=== PATIENT | female | born 1985 | race Caucasian/White ===

== ENCOUNTER 2017-09-05 07:26 | Emergency (ER) | payer OTHER ==
[2017-09-05] MEDS ORDERED: PANTOPRAZOLE 40 MG INJ ONE (08:04)
[2017-09-05] MEDS ORDERED: PROMETHAZINE 25 MG/ML VIAL ONE (08:04)
[2017-09-05] MEDS ORDERED: NA CHLORIDE 0.9% 500 ML ONE (08:04)
[2017-09-05] MEDS ORDERED: NA CHLORIDE 0.9% 1,000 ML ONE (08:04)
[2017-09-05 08:21] LABS: Absolute Lymphocytes (CBC) 2.4 K/uL (0.7-4.9); Absolute Monocytes 0.4 K/uL (0.1-1.3); Absolute Neutrophil 4.3 K/uL (1.8-8.0); Basophils % 0.6 % (0-1.3); Eosinophils % 2.8 % (0-4.4); Hematocrit 42.2 % (36.0-45.0); Lymphocytes % 33.1 % (15.3-44.8); MCH 30.2 pg (27.0-35.0); MCV 90.6 fL (80-100); MPV 8.4 fL (7.6-11.3); Monocytes % 4.7 % (3.3-12.3); RBC Red Blood Cell Count 4.65 M/uL (3.86-4.86)
[2017-09-05 08:26] LABS: Protime INR 0.99
[2017-09-05 08:34] LABS: Bicarbonate 27 mEq/L (21-31); Glucose Level 109 mg/dL (65-120); Lipase 38 U/L (22-51); Potassium 3.6 mEq/L (3.6-5.0); Sodium Level 140 mEq/L (135-145)
[2017-09-05 08:40] LABS: ALT/SGPT 25 IU/L (10-60); AST/SGOT 21 IU/L (10-42); Alkaline Phosphatase 103 IU/L (42-121); Amylase Level 74 U/L (28-100); BUN Blood Urea Nitrogen 8 mg/dL (6-20); Bilirubin Direct 0.1 mg/dL (0-0.2); Bilirubin Total 0.4 mg/dL (0.3-1.2); Magnesium 2.1 mg/dL (1.8-2.5)
[2017-09-05] MEDS ORDERED: LIDOCAINE VISCOUS 2% SOLN 15 ML UDC ONE (09:37)
[2017-09-05] MEDS ORDERED: MAGNE/ALUM HYDROXD 30 ML UCUP ONE (09:37)
[2017-09-05] MEDS ORDERED: HALOPERIDOL LACT 5 MG/ML INJ ONE (09:46)
[2017-09-05] MEDS ORDERED: MORPHINE 4 MG/ML SYR ONE (09:51)
[2017-09-05 09:58] LABS: Urine Bacteria <20 /HPF (<20); Urine Culture Reflex Order NOT NEEDED; Urine RBC NONE SEEN /HPF (NONE SEEN)
[2017-09-05 09:58] LABS: Urine Blood NEGATIVE (NEG); Urine Glucose NEGATIVE (NEG); Urine Protein NEGATIVE (NEG); Urine Specific Gravity 1.015 (1.005-1.030)
--- NOTE | 2017-09-05 10:26 | RAD REPORT ---
EXAM DESCRIPTION: CT - Abdomen Pelvis W Contrast - 09/05/2017 10:04 am CLINICAL HISTORY: Abdominal pain/left upper quadrant pain with vomiting COMPARISON: none. TECHNIQUE: Computed axial tomography of the abdomen pelvis was obtained. 100 cc Isovue-300 was admin istered intravenously. Oral contrast was not requested which limits evaluation of bowel. All CT scans are performed using dose optimization technique as appropriate and may include automated exposure control or mA/KV adjustment according to patient size. FINDINGS: The liver, spleen, pancreas, adrenal and kidneys appear unremarkable. There is no evidence of diverticulitis. The appendix is normal. 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 Fluid is present within nondilated small bowel The gallbladder has been removed. A small umbilical hernia is present. IMPRESSION: Fluid within nondilated small bowel may indicate an enteritis
--- NOTE | 2017-09-05 10:46 | RAD REPORT ---
EXAM DESCRIPTION: RAD - Chest Single View - 09/05/2017 8:55 am CLINICAL HISTORY: Chest pain. COMPARISON: None. FINDINGS: Portable technique limits examination quality. The lungs are grossly clear. The heart is normal in size. No displaced fractures. IMPRESSION: No acute intrathoracic process suspected.
--- NOTE | 2017-09-05 11:08 | EDPHYS ---
Physician Documentation [facility] Name: Kim Willson Age: 32 yrs Sex: Female : 1985 Arrival Date: 09/05/2017 Time: 07:30 Bed Treatment Private MD: None, None ED Physician Mc Cope HPI: 09/05 07:45 This 32 yrs old Female presents to ER via Ambulatory with complaints of cp Abdominal Pain, Nausea/Vomiting. 07:45 The patient presents with abdominal pain in the upper abdomen, nausea and vomiting. cp 07:45 Onset: The symptoms/episode began/occurred 2-3 days ago. cp 07:45 The symptoms do not radiate. Associated signs and symptoms: Pertinent positives: cp constipation, vomiting blood, Pertinent negatives: diarrhea, fever. Patient reports she ran out of Dexilent and Phenergan medications. 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 - Social history:: Smoking status: Patient/guardian denies using tobacco. - Ebola Screening: : No symptoms or risks identified at this time. ROS: 07:50 Constitutional: Negative for body aches, chills, fever, poor PO intake. cp 07:50 Eyes: Negative for injury, pain, redness, and discharge. cp 07:50 ENT: Negative for drainage from ear(s), ear pain, sore throat, difficulty swallowing, difficulty handling secretions. 07:50 Neck: Negative for pain with movement, pain at rest, stiffness. 07:50 Cardiovascular: Negative for chest pain, edema, palpitations. 07:50 Respiratory: Negative for cough, shortness of breath, wheezing. 07:50 Abdomen/GI: Positive for abdominal pain, nausea, vomiting, constipation, hematemesis, of the upper abdomen, Negative for diarrhea, dysphagia, black/tarry stool, rectal bleeding. 07:50 Back: Negative for pain at rest, pain with movement, radiated pain. 07:50 : Negative for urinary symptoms. 07:50 Skin: Negative for cellulitis, rash. 07:50 Neuro: Negative for altered mental status, dizziness, headache, syncope, near syncope, weakness. 07:50 All other systems are negative. Exam: 07:58 Constitutional: The patient appears in no acute distress, alert, awake, cp non-diaphoretic, non-toxic, well developed, well nourished, uncomfortable. 07:58 Head/Face: Normocephalic, atraumatic. cp 07:58 Eyes: Periorbital structures: appear normal, Pupils: equal, round, and reactive to light and accomodation, Extraocular movements: intact throughout, Conjunctiva: normal, no exudate, no injection, Sclera: no appreciated abnormality, Lids and lashes: appear normal, bilaterally. 07:58 ENT: External ear(s): are unremarkable, Nose: is normal, Mouth: Lips: moist, Oral mucosa: pink and intact, moist, Posterior pharynx: is normal, airway is patent, no erythema, no exudate, Voice: is normal. 07:58 Neck: ROM/movement: is normal, is supple, without pain, no range of motions limitations, no nuchal rigidity. 07:58 Chest/axilla: Inspection: normal, Palpation: is normal, no crepitus, no tenderness. 07:58 Cardiovascular: Rate: normal, Rhythm: regular, Heart sounds: murmur, not appreciated, rub, not appreciated, gallop, not appreciated, JVD: is not appreciated. 07:58 Respiratory: the patient does not display signs of respiratory distress, Respirations: normal, no use of accessory muscles, no retractions, no splinting, no tachypnea, labored breathing, is not present, Breath sounds: are clear throughout, no decreased breath sounds, no stridor, no wheezing. 07:58 Abdomen/GI: Inspection: abdomen appears normal, Bowel sounds: active, all quadrants, Palpation: soft, in all quadrants, moderate abdominal tenderness, in the epigastric area and left upper quadrant, rebound tenderness, is not appreciated, involuntary guarding, is not appreciated. 07:58 Back: CVA tenderness, is absent. 07:58 Skin: cellulitis, is not appreciated, no rash present. Vital Signs: 07:37 BP 147 / 100; Pulse 78; Resp 16 S; Temp 98.0(O); Pulse Ox 97% on R/A; Weight 104.33 kg aa5 (R); Height 5 ft. 6 in. (167.64 cm) (R); Pain 8/10; 08:17 BP 137 / 98; Pulse 56; Resp 16; Pulse Ox 97% ; jl7 09:40 BP 152 / 116; Pulse 75; Resp 16; Pulse Ox 100% ; Pain 8/10; jl7 12:00 BP 157 / 113; Pulse 75; Resp 16; Pulse Ox 100% ; jl7 13:14 BP 155 / 103; Pulse 65; Resp 16; Pulse Ox 100% ; jl7 07:37 Body Mass Index 37.12 (104.33 kg, 167.64 cm) aa5 MDM: 07:35 Patient medically screened. cp 08:00 Differential diagnosis: gastritis, gastroesophageal reflux disease, GI Bleed, cp pancreatitis, Peptic Ulcer Disease, Perf. Duodenal Ulcer, Perf. Gastric Ulcer, Ureterolithiasis, urinary tract infection. 09/05 07:49 Order name: Amylase, Serum; Complete Time: 08:50 cp 06/05 08:50 Interpretation: Within normal limits: C[place] 74. cp 06/05 07:49 Order name: Basic Metabolic Panel; Complete Time: 08:50 cp 06/05 07:49 Order name: CBC with Diff; Complete Time: 08:50 cp 06/05 08:50 Interpretation: Within normal limits: Reviewed. cp 06/05 07:49 Order name: Creatinine for Radiology; Complete Time: 09:14 cp 06/05 09:15 Interpretation: Reviewed. cp 06/05 07:49 Order name: Hepatic Function; Complete Time: 08:50 cp 06/05 07:49 Order name: Lipase; Complete Time: 08:50 cp 06/05 09:15 Interpretation: LIP 38; Reviewed. cp 06/05 07:49 Order name: Urine Microscopic Only; Complete Time: 10:32 cp 06/05 10:32 Interpretation: Reviewed. cp 06/05 07:49 Order name: PT-INR; Complete Time: 08:50 cp 06/05 07:49 Order name: Ptt, Activated; Complete Time: 08:50 cp 06/05 07:49 Order name: Magnesium; Complete Time: 08:50 cp 06/05 07:49 Order name: XRAY Chest (1 view); Complete Time: 10:54 cp 06/05 10:54 Interpretation: Report review. cp 06/05 09:50 Order name: Urine Dipstick--Ancillary (enter results); Complete Time: 10:32 bd 09/05 10:32 Interpretation: Normal except: UESTR TRACE. cp 09/05 09:58 Order name: Occult Blood--Ancillary; Complete Time: 21:27 bd 09/05 07:49 Order name: IV Saline Lock; Complete Time: 08:00 cp 09/05 07:49 Order name: Labs collected and sent; Complete Time: 08:00 cp 09/05 09:49 Order name: CT Abd/Pelvis - W/Contrast: no oral contrast; Complete Time: 10:32 cp 09/05 10:55 Order name: PO challenge; Complete Time: 11:46 cp Administered Medications: 08:01 Not Given (Physician Discretion): Zofran 4 mg IVP once; over 2 minutes cp 08:07 Drug: NS 0.9% 1000 ml Route: IV; Rate: 125 ml/hr; Site: left antecubital; jl7 12:00 Follow up: IV Status: Completed infusion jl7 08:08 Drug: ProTONIX 40 mg Route: IVP; Site: left antecubital; jl7 09:38 Follow up: Response: No adverse reaction; Pain is unchanged, physician notified jl7 08:10 Drug: NS 0.9% 500 ml Route: IV; Rate: bolus; Site: left antecubital; jl7 08:45 Follow up: IV Status: Completed infusion jl7 08:11 Drug: Phenergan 25 mg Route: IVP; Site: left antecubital; jl7 08:45 Follow up: Response: No adverse reaction; Nausea is decreased jl7 09:38 Drug: GI Cocktail without - (Maalox Suspension 30 ml, Lidocaine Liquid 2 % 15 jl7 ml) Route: PO; 09:51 Follow up: Response: No adverse reaction; Pain is unchanged, physician notified jl7 09:54 Drug: morphine 2 mg Route: IVP; Site: left antecubital; jl7 10:20 Follow up: Response: No adverse reaction; Pain is decreased jl7 12:46 Drug: Zofran 4 mg Route: IVP; Site: left antecubital; jl7 13:00 Follow up: Response: No adverse reaction; Nausea is decreased jl7 12:48 Drug: Ativan 0.5 mg Route: IVP; Site: left antecubital; jl7 13:00 Follow up: Response: No adverse reaction jl7 Disposition: 13:37 Co-signature as Attending Physician, Mc Cope MD. rn Disposition: 09/05/17 11:08 Discharged to Home. Impression: Nausea and vomiting, Upper abdominal pain, unspecified. - Condition is Stable. - Discharge Instructions: Abdominal Pain, Adult, Nausea and Vomiting. - Prescriptions for Protonix 40 mg Oral Tablet - take 1 tablet by ORAL route once daily; 30 tablet. Phenergan 25 mg Rectal Suppository - insert 1 suppository by RECTAL route every 6 hours As needed; 12 suppository. promethazine 25 mg Oral Tablet - take 1 tablet by ORAL route every 6 hours As needed; 20 tablet. - Medication Reconciliation Form, Thank You Letter, Antibiotic Education, Prescription Opioid Use, Work release form form. - Follow up: Carolina Osborn MD; When: 1 - 2 days; Reason: Recheck today's complaints. - Problem is new. - Symptoms have improved. Signatures: Dispatcher [employer] [facility] Mc Cope MD MD rn Calderon, Audri RN RN aa5 Dillan Heaton PA PA Lucy Ibrahim RN RN jl7 Corrections: (The following items were deleted from the chart) 08:00 07:34 Urine Test ordered. [facility] 10:07 09:00 Abdomen With Erect+RAD.RAD.BRZ ordered. [facility] 13:21 11:08 09/05/2017 11:08 Discharged to Home. Impression: Nausea and vomiting; Upper jl7 abdominal pain, unspecified. Condition is Stable. Forms are Medication Reconciliation Form, Thank You Letter, Antibiotic Education, Prescription Opioid Use. Follow up: Carolina Osborn; When: 1 - 2 days; Reason: Recheck today's complaints. Problem is new. Symptoms have improved. 19:16 13:21 09/05/2017 11:08 Discharged to Home. Impression: Nausea and vomiting; Upper jl7 abdominal pain, unspecified. Condition is Stable. Discharge Instructions: Abdominal Pain, Adult, Nausea and Vomiting. Prescriptions for Protonix 40 mg Oral Tablet - take 1 tablet by ORAL route once daily; 30 tablet, Phenergan 25 mg Rectal Suppository - insert 1 suppository by RECTAL route every 6 hours As needed; 12 suppository, promethazine 25 mg Oral Tablet - take 1 tablet by ORAL route every 6 hours As needed; 20 tablet. and Forms are Medication Reconciliation Form, Thank You Letter, Antibiotic Education, Prescription Opioid Use, Work release form. Follow up: Carolina Osborn; When: 1 - 2 days; Reason: Recheck today's complaints. Problem is new. Symptoms have improved. jl7
--- NOTE | 2017-09-05 11:08 | ER ---
Nurse's Notes [facility] Name: Kim Willson Age: 32 yrs Sex: Female : 1985 Arrival Date: 09/05/2017 Time: 07:30 Bed Treatment Private MD: None, None Diagnosis: Nausea and vomiting;Upper abdominal pain, unspecified Presentation: 09/05 07:34 Presenting complaint: Patient states: intermittent LUQ pain with N/V that began 2-3 aa5 days ago. Pt also reports vomiting bright red blood. Pt states "I've had a problem with bleeding ulcers for a while". Pt denies diarrhea. Transition of care: patient was not received from another setting of care. Onset of symptoms was September 2017. Risk Assessment: Do you want to hurt yourself or someone else? Patient reports no desire to harm self or others. Initial Sepsis Screen: Does the patient meet any 2 criteria? No. Patient's initial sepsis screen is negative. Does the patient have a suspected source of infection? No. Patient's initial sepsis screen is negative. Care prior to arrival: None. 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 - Social history:: Smoking status: Patient/guardian denies using tobacco. - Ebola Screening: : No symptoms or risks identified at this time. Screenin:40 Abuse screen: Denies threats or abuse. Denies injuries from another. Nutritional jl7 screening: No deficits noted. Tuberculosis screening: No symptoms or risk factors identified. Fall Risk IV access (20 points). Assessment: 07:40 General: Appears in no apparent distress. uncomfortable, Behavior is anxious, crying. jl7 Pain: Complains of pain in epigastric area Pain does not radiate. Pain currently is 8 out of 10 on a pain scale. Quality of pain is described as stabbing, Pain began 2-3 days ago. Is continuous. Neuro: Level of Consciousness is awake, alert, obeys commands, Oriented to person, place, time, situation. Cardiovascular: Patient's skin is warm and dry. Respiratory: Airway is patent Respiratory effort is even, unlabored, Respiratory pattern is regular, symmetrical. GI: Stools are reported to be constipated. Last BM was August 03, 2017. Bowel sounds hypoactive in right upper quadrant, left upper quadrant, right lower quadrant and left lower quadrant Abd is soft and non tender Reports nausea, vomiting, since x3 days Patient currently denies diarrhea. : No signs and/or symptoms were reported regarding the genitourinary system. EENT: No signs and/or symptoms were reported regarding the EENT system. Derm: Skin is pink, warm \\T\\ dry. Musculoskeletal: No signs and/or symptoms reported regarding the musculoskeletal system. 09:00 Reassessment: Pt reports "The pain is just getting worse." Provider notified, see MAR jl7 for orders. 09:49 Reassessment: Pt sitting in bed crying, reports the pain is not any better. Provider [email or web address] notified, see MAR for orders. 12:00 Reassessment: Pt given 1 cup of water for po challenge, pt vomited after. Provider neftali unavailable at this time. 12:45 Reassessment: Provider notified of PO challenge results. See MAR for orders. jl7 Vital Signs: 07:37 BP 147 / 100; Pulse 78; Resp 16 S; Temp 98.0(O); Pulse Ox 97% on R/A; Weight 104.33 kg aa5 (R); Height 5 ft. 6 in. (167.64 cm) (R); Pain 8/10; 08:17 BP 137 / 98; Pulse 56; Resp 16; Pulse Ox 97% ; jl7 09:40 BP 152 / 116; Pulse 75; Resp 16; Pulse Ox 100% ; Pain 8/10; jl7 12:00 BP 157 / 113; Pulse 75; Resp 16; Pulse Ox 100% ; jl7 13:14 BP 155 / 103; Pulse 65; Resp 16; Pulse Ox 100% ; jl7 07:37 Body Mass Index 37.12 (104.33 kg, 167.64 cm) aa5 ED Course: 07:30 Patient arrived in ED. mr 07:30 None, None is Private Physician. mr 07:30 Lucy Vance, LINDA is Primary Nurse. jl7 07:33 Dillan Heaton PA is PHCP. cp 07:33 Mc Cope MD is Attending Physician. cp 07:36 Triage completed. aa5 07:36 Arm band placed on. aa5 07:40 Patient has correct armband on for positive identification. Placed in gown. Bed in low jl7 position. Call light in reach. Side rails up X 1. Pulse ox on. NIBP on. Warm blanket given. 07:40 Initial lab(s) drawn, by me, sent to lab. Urine collected: clean catch specimen, jl7 cloudy. Inserted saline lock: 20 gauge in left antecubital area, using aseptic technique. Blood collected. 08:53 XRAY Chest (1 view) In Process Unspecified. EDMS 09:00 X-ray completed. Portable x-ray completed in exam room. Patient tolerated procedure sw well. Patient tolerated procedure poorly. 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 jl7 09:52 Radiology exam delayed due to test not completed at this time. kw1 09:53 Patient moved to radiology via wheelchair. ag1 10:02 CT completed. Patient tolerated procedure well. Patient moved to CT. Patient moved back sj from CT. 10:04 CT Abd/Pelvis - W/Contrast: no oral contrast In Process Unspecified. EDMS 11:06 Carolina Osborn MD is Referral Physician. cp 13:20 IV discontinued, intact, bleeding controlled, No redness/swelling at site. Pressure jl7 dressing applied. 19:13 Primary Nurse role handed off by Lucy Vance RN jl7 19:14 Lucy Vance RN is Primary Nurse. jl7 Administered Medications: 08:01 Not Given (Physician Discretion): Zofran 4 mg IVP once; over 2 minutes cp 08:07 Drug: NS 0.9% 1000 ml Route: IV; Rate: 125 ml/hr; Site: left antecubital; jl7 12:00 Follow up: IV Status: Completed infusion jl7 08:08 Drug: ProTONIX 40 mg Route: IVP; Site: left antecubital; jl7 09:38 Follow up: Response: No adverse reaction; Pain is unchanged, physician notified jl7 08:10 Drug: NS 0.9% 500 ml Route: IV; Rate: bolus; Site: left antecubital; jl7 08:45 Follow up: IV Status: Completed infusion jl7 08:11 Drug: Phenergan 25 mg Route: IVP; Site: left antecubital; jl7 08:45 Follow up: Response: No adverse reaction; Nausea is decreased jl7 09:38 Drug: GI Cocktail without - (Maalox Suspension 30 ml, Lidocaine Liquid 2 % 15 jl7 ml) Route: PO; 09:51 Follow up: Response: No adverse reaction; Pain is unchanged, physician notified jl7 09:54 Drug: morphine 2 mg Route: IVP; Site: left antecubital; jl7 10:20 Follow up: Response: No adverse reaction; Pain is decreased jl7 12:46 Drug: Zofran 4 mg Route: IVP; Site: left antecubital; jl7 13:00 Follow up: Response: No adverse reaction; Nausea is decreased jl7 12:48 Drug: Ativan 0.5 mg Route: IVP; Site: left antecubital; jl7 13:00 Follow up: Response: No adverse reaction jl7 Outcome: 11:08 Discharge ordered by . cp 13:18 Discharged to jl7 13:20 Discharged to home ambulatory. jl7 13:20 Condition: stable 13:20 Discharge instructions given to patient, family, Instructed on discharge instructions, follow up and referral plans. medication usage, Demonstrated understanding of instructions, follow-up care, medications, Prescriptions given X 3. 13:21 Patient left the ED. jl7 19:16 Patient left the ED. jl7 Signatures: Dispatcher [employer] [facility] Gina Araujo Susan sj Calderon, Audri, RN RN aa5 Antonieta Zacarias ag1 Rhianna Berger Corey, PA PA Lucy Ibrahim RN RN jl7 Kinza Echevarria kw1 Corrections: (The following items were deleted from the chart) 19:16 12:46 Zofran 4 mg IVP in right antecubital jl7 jl7
[2017-09-05] MEDS ORDERED: LORazepam 2 MG/ML VIAL ONE (12:50)
[2017-09-05] MEDS ORDERED: ONDANSETRON 4 MG/2 ML VIAL ONE (12:50)
== END 2017-09-05 19:16 | disposition home or self-care (01) ==
LOC: ER 07:26
DX: R10.10 Upper abdominal pain, unspecified (principal)
CPT/HCPCS: 36415; 71045; 74177; 80048; 80076; 81003; 81015; 82150; 82272; 83690; 83735; 85025; 85610; 85730; 96361; 96374; 96375; 99285; C9113; J1630; J2405; J2550; J7030; Q9967